=== PATIENT | male | born 1940 | race Caucasian/White ===

== ENCOUNTER → 2016-11-27 | Outpatient (CLI) | payer OTHER ==
[~2016-11-27] MED LIST: ACET-1256 PO; ASPEC81 PO; CALC500C3 PO; FINA5TAB PO; LOSA50TA6 PO; METO100T14 PO; PRAV40TA PO; PRAZ5CAP2 PO; PRLSR20 PO; QSTP PO; THM100 PO; WARF5TAB90 PO
--- NOTE | 2016-11-27 17:05 | DIAGNOSTIC IMAGING REPORT ---
HEAD WITHOUT CONTRAST (CT) CLINICAL HISTORY: 76 years-old Male with FALL, MENTAL STATUS CHANGES. Acute fall with altered mental status TECHNIQUE: Multiple axial CT images of the head were obtained without contrast. A dose lowering technique was utilized adhering to the principles of ALARA. CT DOSE: 788.63 mGycm COMPARISON: None. FINDINGS: No acute intracranial hemorrhage, midline shift, mass, large territorial ischemia or abnormal extra-axial collection. Mild atrophy. Ill-defined areas of low attenuation within the periventricular white matter suggests chronic vascular ischemic changes. Focal area of low-attenuation and apparent encephalomalacia involves the medial right occipital lobe. The calvarium is intact. The paranasal sinuses, mastoid air cells, and middle ear cavities are clear. Note is made of metopic suture. 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 IMPRESSION: 1. No acute intracranial hemorrhage or territorial ischemia identified. 2. 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 3. Mild atrophy with chronic microvascular ischemic changes. The above report was generated using voice recognition software. It may contain grammatical, syntax or spelling errors. Electronically signed by: Filipe Camarillo M.D. 11/27/2016 5:04 PM Dictated Date/Time: 11/27/2016 5:00 PM
== END | disposition home or self-care (01) ==
LOC: C.CTS 16:00
PROVIDERS: ATTEND Internal Medicine
DX: R41.82 Altered mental status, unspecified (principal); W19.XXXA Unspecified fall, initial encounter; G93.89 Other specified disorders of brain